=== PATIENT | female | born 1985 | race Caucasian/White ===

== ENCOUNTER 2017-10-17 08:44 | Emergency (ER) | payer OTHER ==
--- NOTE | 2017-10-17 08:54 | UC ---
Lower Extremity/Ankle HPI - HPI Summary HPI Summary: 32 year old female presents with complains of right leg swelling/pain/grayish color. - History of Current Complaint Stated Complaint: RIGHT LEG SWOLLEN/RED Time Seen by Provider: 10/17/17 08:54 Hx Obtained From: Patient ?: Yes Onset/Duration: Sudden Onset Severity Initially: Moderate Severity Currently: Moderate Pain Scale Used: 0-10 Numeric - 5 - Allergies/Home Medications Allergies/Adverse Reactions: Allergies Allergy/AdvReac Type Severity Reaction Status Date / Time Nickel Allergy Intermediate Rash Verified 10/17/17 08:58 Home Medications: Home Medications NK [No Home Medications Reported] 10/17/17 [History Confirmed 10/17/17] PMH/Surg Hx/FS Hx/Imm Hx Previously Healthy: Yes - Surgical History Surgical History: Yes Surgery Procedure, Year, and Place: tubal ligation - Family History Known Family History: Positive: None - Social History Alcohol Use: None Substance Use Type: None Smoking Status (MU): Heavy Every Day Tobacco Smoker Amount Used/How Often: 1/2 ppd Length of Time of Smoking/Using Tobacco: 10 YRS When Did the Patient Quit Smoking/Using Tobacco: APRIL 2015 - Immunization History Most Recent Influenza Vaccination: na Most Recent Tetanus Shot: up to date Review of Systems Constitutional: Negative Skin: Negative Eyes: Negative ENT: Negative Respiratory: Negative Cardiovascular: Negative Gastrointestinal: Negative Genitourinary: Negative Motor: Negative Neurovascular: Negative Musculoskeletal: Other: - right leg swellling Neurological: Negative Psychological: Negative All Other Systems Reviewed And Are Negative: Yes Physical Exam Triage Information Reviewed: Yes Vital Signs Reviewed: Yes Eye Exam: Normal ENT Exam: Normal Dental Exam: Normal Neck exam: Normal Neck: Positive: 1 Respiratory Exam: Normal Cardiovascular Exam: Normal Abdominal Exam: Normal Musculoskeletal Exam: Normal Neurological Exam: Normal Psychological Exam: Normal Skin Exam: Normal Lower Extremity Course/Dx - Differential Dx/Diagnosis Provider Diagnoses: right leg swelling/pain Discharge - Discharge Plan Condition: Stable Disposition: OTHER Discharge Disposition Comment: patient suggested to go to the er Patient Education Materials: Deep Venous Thrombosis (ED) Referrals: José Diaz [Primary Care Provider] - Additional Instructions: patient suggested to go to the er to rule out dvt.
[2017-10-17 09:05] VITALS: BP 140/81
== END 2017-10-17 09:16 ==
LOC: UCCORT 08:44
DX: R60.0 Localized edema (principal); M79.604 Pain in right leg; Z87.891 Personal history of nicotine dependence
CPT/HCPCS: 99212; G0463